=== PATIENT | male | born 1965 | race Two or more races ===

== ENCOUNTER 2024-09-19 11:33 | Inpatient (IN) | payer MEDICAID, OTHER ==
[~2024-09-19] VITALS: Ht 182.9 cm; Wt 90.0 kg
--- NOTE | 2024-09-19 13:01 | ED.PDOC ---
Musculoskeletal HPI Comments 59Y M with PMHx anxiety and lt hip surgery presents to ED via EMS for chief complaint lt hip pain s/p surgery 8 days ago. Pt had lt hip surgery performed 8 days ago at [facility] and was sent to a post-acute center. Pt states he is unable to disclose information on reason for the surgery as his lane attendant recommended against it. Pt was picked up at the post-acute center by EMS today as pt heard a "rip and pop" on his left hip last night. Pt denies seeing blood. Pt denies chest pain, SOB, fever, and all other symptoms. Per pt, current post- acute center does not have proper amenities for his care and do not have the ability to give him pain medication. Pt states he is unable to stand up alone and does not receive proper help in the current post-acute center. Chief Complaint: Lower Extremity Time Seen by MD: 12:28 Reviewed Notes: Nurses Notes, Epitaxial Reactor Technician Notes, Medications, Allergies Allergies: Coded Allergies: Sulfamethoxazole w/Trimethoprim (Verified Allergy, Severe, 09/19/24) Information Source: Patient, Emergency Med Personnel Mode of Arrival: EMS Brought in by: EMS Location: Left Extremity Location: Hip, Knee Timing: Hours Prehospital treatment: None Severity: Mild Able to Move Extremity: Yes Bear Weight: No Pain: Mild Mechanism: Unknown Circumstances: Unknown Onset of Symptoms: After Trauma Symptoms: Swelling, Pain DVT Risk Factors: NONE History of: Hip Operation Associated signs and symptoms: Knee pain, Hip pain Past Medical History PAST MEDICAL HISTORY: Anxiety Surgical History (Other): lt hip surgery Family History Family History: Unknown Social History Smoker: Non-Smoker Alcohol: Occasionally Drugs: Marijuana Lives In: Homeless Constitutional: denies: chills, diaphoresis, fatigue, fever, malaise, sweats, weakness, others EENTM: denies: blurred vision, double vision, ear bleeding, ear discharge, ear drainage, ear pain, ear ringing, eye pain, eye redness, hearing loss, mouth pain, mouth swelling, nasal discharge, nose bleeding, nose congestion, nose pain, photophobia, tearing, throat pain, throat swelling, voice changes, others Respiratory: denies: cough, hemoptysis, orthopnea, SOB at rest, shortness of breath, SOB with excertion, stridor, wheezing, others Cardiovascular: denies: chest pain, dizzy spells, diaphoresis, Dyspnea on exertion, edema, irregular heart beat, left arm pain, lightheadedness, palpitations, PND, syncope, others Gastrointestinal: denies: abdomen distended, abdominal pain, blood streaked bowels, constipated, diarrhea, dysphagia, difficulty swallowing, hematemesis, melena, nausea, poor appetite, poor fluid intake, rectal bleeding, rectal pain, vomiting, others Genitourinary: denies: burning, dysuria, flank pain, frequency, hematuria, incontinence, penile discharge, penile sore, pain, testicle pain, testicle swelling, urgency, others Neurological: denies: dizziness, fainting, headache, left sided numbness, left sided weakness, numbness, paresthesia, pre-existing deficit, right sided numbness, right sided weakness, seizure, speech problems, tingling, tremors, weakness, others Musculoskeletal: reports: joint pain, others (LLE pain, lt hip pain); denies: back pain, gout, joint swelling, muscle pain, muscle stiffness, neck pain Integumetry: denies: bruises, change in color, change in hair/nails, dryness, laceration, lesions, lumps, rash, wounds, others Allergic/Immunocompromised: denies: Difficulty Healing, Frequent Infections, Hives, Itching, others Hematologic/Lymphatic: denies: anemia, blood clots, easy bleeding, easy bruising, swollen glands, others Endocrine: denies: excessive hunger, excessive sweating, excessive thirst, excessive urination, flushing, intolerance to cold, intolerance to heat, unexplained weight gain, unexplained weight loss, others Psychiatric: denies: anxiety, bipolar disorder, depression, hopeless, panic disorder, schizophrenia, sleepless, suicidal, others All Other Systems: Reviewed and Negative Physical Exam General Appearance: Moderate Distress, Normal HEENT: Normal ENT Inspection, PERRL/EOMI, Pharynx Normal, TMs Normal Neck: Full Range of Motion, Non-Tender, Normal, Normal Inspection Respiratory: Chest Non-Tender, Lungs Clear, No Accessory Muscle Use, No Respiratory Distress, Normal Breath Sounds Cardiovascular: No Edema, No JVD, No Murmur, No Gallop, Normal Peripheral Pulses, Regular Rate/Rhythm Breast Exam: Deferred Gastrointestinal: No Organomegaly, Non Tender, No Pulsatile Mass, Normal Bowel Sounds, Soft Genitalia: Deferred Pelvic: Deferred Rectal: Deferred Extremities: Decreased range of motion, Inflammation, No calf tenderness, Normal capillary refill, No pedal edema, Swelling, Tender, Other (Patient had hip surgery week ago try to get up yesterday and today and felt like a tear and a crack in his left hip with severe pain there is no deformity) Musculoskeletal : Apperance: Normal Neurologic: Alert, methods engineer II-XII nml as Tested, No Motor Deficits, Normal Affect, Normal Mood, No Sensory Deficits Cerebellar Function: NOT DONE Reflexes: NOT DONE Skin: Dry, Normal Color, Warm Peripheral Pulses: 1+ carotid (R), 1+ carotid (L) Lymphatic: No Adenopathy Was a procedure done? Was a procedure done?: No Differential Diagnosis EXT Differential Diagnosis: Fracture, Sprain, Dislocation, DJD, Contusion, Strain, Neurovascular injury X-Ray, Labs, Meds, VS Vital Signs Date Time Temp Pulse Resp B/P (MAP) Pulse Ox O2 Delivery O2 Flow Rate FiO2 09/19/24 11:42 98.4 94 18 140/68 (92) 98 Lab Test 09/19/24 13:34 Range/Units White Blood Count 7.2 4.4-10.8 10^3/uL Red Blood Count 4.14 L 4.5-5.90 10^6/uL Hemoglobin 12.8 L 13.5-17.5 g/dL Hematocrit 37.9 L 41.0-53.0 % Mean Corpuscular Volume 91.5 80.0-100.0 fL Mean Corpuscular Hemoglobin 31.0 28.0-32.0 pg Mean Corpuscular Hemoglobin Concent 33.9 32.0-36.0 g/dL Red Cell Distribution Width 13.0 11.8-14.3 % Platelet Count 383 140-450 10^3/uL Mean Platelet Volume 7.1 6.9-10.8 fL Neutrophils (%) (Auto) 75.7 37.0-80.0 % Lymphocytes (%) (Auto) 15.7 10.0-50.0 % Monocytes (%) (Auto) 6.5 0.0-12.0 % Eosinophils (%) (Auto) 1.4 0.0-7.0 % Basophils (%) (Auto) 0.7 0.0-2.0 % Neutrophils # (Auto) 5.5 1.6-8.6 10 ^3/uL Lymphocytes # (Auto) 1.1 0.4-5.4 10 ^3/uL Monocytes # (Auto) 0.5 0-1.3 10 ^3/uL Eosinophils # (Auto) 0.1 0-0.8 10 ^3/uL Basophils # (Auto) 0.1 0-0.2 10 ^3/uL Nucleated Red Blood Cells 0.0 % Sodium Level 137 136-145 mmol/L Potassium Level 4.3 3.5-5.1 mmol/L Chloride Level 103 98-107 mmol/L Carbon Dioxide Level 28 20-31 mmol/L Anion Gap 6 5-15 Blood Urea Nitrogen 18 9-23 mg/dL Creatinine 0.84 0.700-1.30 mg/dL Glomerular Filtration Rate Calc 100 >90 mL/min BUN/Creatinine Ratio 21.4 H 10.0-20.0 Serum Glucose 102 74-106 mg/dL Calcium Level 9.6 8.7-10.4 mg/dL Magnesium Level 2.1 1.6-2.6 mg/dL [place] [id number] Ph: [phone] DIAGNOSTIC IMAGING Diagnostic Imaging Report : [id number] Signed PATIENT: AG WILSON ACCT: [id number] UNIT: [id number] : 1965 LOC: ER ROOM / BED: / AGE / SEX: 59 / M ADM STATUS: REG ER SERVICE 1250 ORDERING PHYSICIAN: BLAKE RADFORD MD [facility] OUT CONTRAST REASON: Left hip surgery re-injury ORDER NUMBER(s): [id number], ACCESSION NUMBER(s): [id number] INDICATION: Left hip surgery re-injury COMPARISON: None TECHNIQUE: CT of the left hip was performed without contrast. Volume transverse images were obtained and reconstructed in multiple planes using bone and soft tissue algorithms. Radiation Dose Information: CT Dose: CTDI volume is 22.45 mGy. Dose-length product is 736.46 mGy*cm FINDINGS: Bones: Intramedullary ghada and screw fixation of the left femur. The hardware appears intact and in expected position. There is a minimally displaced intertrochanteric fracture with minimal comminution. There is no appreciable osseous healing. Soft tissues: No significant joint effusion. There is superficial stranding and scarring overlying the left hip consistent with prior surgery. No focal fluid collections are seen. There is a small fat containing left inguinal hernia. IMPRESSION: Left intertrochanteric femur fracture status post intramedullary ghada and screw fixation. The hardware appears intact and there is good alignment of the fracture fragments. Preoperative imaging is not available for comparison. All CT scans at this medical facility are performed using dose modulation techniques as appropriate to a performed exam including the following: Automated exposure control was utilized; adjustment of the MA and/or KV according to patient size; and use of iterative reconstruction technique. ATED BY: CHENG GRAY DO DICTATED DATE/TIME: 09/19/24 1328 SIGNED BY: CHENG GRAY DO SIGNED DATE/TIME: 09/19/24 1328 CC: X-Ray, Labs, Meds, VS Comment Course in the emergency department eventful patient came in by ambulance because of severe left knee pain patient had surgery about a week ago at [facility] this morning he tried to get up and felt snap and a crack and severe pain to his left hip mostly distal area CBC normal BNP negative Magnesium 2.1 CT of the left hip does not show any re-injury Patient needs a medical social worker for further care he does not want to go back to is post acute facility Time of 1ST Reevaluation: 12:58 Reevaluation 1ST: Unchanged Time of 2ND Reevaluation: 14:42 Reevaluation 2ND: Improved Patient Education/Counseling: Diagnosis, Treatment Family Education/Counseling: No Family Present Departure 1 Departure Time of Disposition: 14:42 Impression: Primary Impression: Aftercare following left hip joint replacement surgery Additional Impression: Sprain of left hip Disposition: 30 STILL A PATIENT Condition: Fair Critical Care Note Critical Care Time?: No Stability Stability form required: No Heart Score Heart Score: Heart Score Response (Comments) Value History N/A 0 EKG N/A 0 Age 45-64 1 Risk Factors N/A 0 Troponin N/A 0 Total 1 I personally scribed for BLAKE RADFORD MD ([email or web address]) on 09/19/24 at 13:01. Electronically submitted by Kathleen Coker ([facility]). I personally scribed for BLAKE RADFORD MD ([email or web address]) on 09/19/24 at 13:09. Electronically submitted by Kathleen Coker ([facility]). I personally scribed for BLAKE RADFORD MD ([email or web address]) on 09/19/24 at 13:41. Electronically submitted by Kathleen Coker ([facility]). BLAKE RADFORD MD Sep 19, 2024 13:01
[2024-09-19] MEDS: SODIUM CHLORIDE 0.9% 1,000 ML IV ONE (13:02)
--- NOTE | 2024-09-19 13:30 | DVH ---
INDICATION: Left hip surgery re-injury COMPARISON: None TECHNIQUE: CT of the left hip was performed without contrast. Volume transverse images were obtained and reconstructed in multiple planes using bone and soft tissue algorithms. Radiation Dose Information: CT Dose: CTDI volume is 22.45 mGy. Dose-length product is 736.46 mGy*cm FINDINGS: Bones: Intramedullary ghada and screw fixation of the left femur. The hardware appears intact and in e xpected position. There is a minimally displaced intertrochanteric fracture with minimal comminution. There is no appreciable osseous healing. Soft tissues: No significant joint effusion. There is superficial stranding and scarring overlying th e left hip consistent with prior surgery. No focal fluid collections are seen. There is a small fat containing left inguinal hernia. IMPRESSION: Left intertrochanteric femur fracture status post intramedullary ghada and screw fixation. The hardware appears intact and there is good alignment of the fracture fragments. Preoperative imaging is not av ailable for comparison. All CT scans at this medical facility are performed using dose modulation techniques as appropriate t o a performed exam including the following: Automated exposure control was utilized; adjustment of th e MA and/or KV according to patient size; and use of iterative reconstruction technique.
[2024-09-19 13:51] LABS: Basophils # (auto) 0.1 10 ^3/uL (0-0.2); Basophils % (auto) 0.7 % (0.0-2.0); Eosinophils # (auto) 0.1 10 ^3/uL (0-0.8); Eosinophils % (auto) 1.4 % (0.0-7.0); Hematocrit 37.9 % (41.0-53.0); Hemoglobin 12.8 g/dL (13.5-17.5); Lymphocytes # (auto) 1.1 10 ^3/uL (0.4-5.4); Lymphocytes % (auto) 15.7 % (10.0-50.0); Mean Corpuscular Hgb Conc. 33.9 g/dL (32.0-36.0); Mean Corpuscular Volume 91.5 fL (80.0-100.0); Monocytes # (auto) 0.5 10 ^3/uL (0-1.3); Monocytes % (auto) 6.5 % (0.0-12.0); Neutrophils # (auto) 5.5 10 ^3/uL (1.6-8.6); Neutrophils % (auto) 75.7 % (37.0-80.0); Platelet Count (auto) 383 10^3/uL (140-450); Red Blood Cells 4.14 10^6/uL (4.5-5.90); White Blood Cell 7.2 10^3/uL (4.4-10.8)
[2024-09-19 14:12] LABS: Chloride 103 mmol/L (98-107); Potassium 4.3 mmol/L (3.5-5.1); Sodium 137 mmol/L (136-145)
[2024-09-19 14:13] LABS: Anion Gap 6 (5-15); Calcium 9.6 mg/dL (8.7-10.4); Carbon Dioxide 28 mmol/L (20-31)
[2024-09-19 14:18] LABS: BUN/Creatinine Ratio 21.4 (10.0-20.0); Blood Urea Nitrogen 18 mg/dL (9-23); Glucose 102 mg/dL (74-106)
[2024-09-19 14:19] LABS: Magnesium 2.1 mg/dL (1.6-2.6)
[2024-09-19 20:00] VITALS: RESP 18
[2024-09-19] MEDS: HYDROcodone-ACET 10/325MG TAB PO ONE (20:11)
--- NOTE | 2024-09-20 07:41 | ED.PDOC ---
Departure 1 Departure Time of Disposition: 07:40 (Patient was signed out to me pending reassessment Patient had recent hip repair. Patient is unable to ambulate and in pain. We will admit patient for pain control and placement.) Impression: Primary Impression: Aftercare following left hip joint replacement surgery Additional Impression: Sprain of left hip Qualified Codes: S73.102A - Unspecified sprain of left hip, initial encounter Disposition: ADMITTED INPATIENT Admit to: Med Surg Condition: Fair REGINALD RM MD Sep 20, 2024 07:41
[2024-09-20] MEDS: HYDROcodone-ACET 10/325MG TAB PO ONE (07:55)
--- NOTE | 2024-09-20 07:56 | DVHHP2 ---
Admitting Diagnosis: Left leg pain History of Present Illness 59Y M with PMHx anxiety and lt hip surgery presents to ED via EMS for chief complaint lt hip pain s/p surgery 8 days ago. Pt had lt hip surgery performed 8 days ago at [facility] and was sent to a post-acute center. Pt states he is unable to disclose information on reason for the surgery as his engineering technical writer recommended against it. Pt was picked up at the post-acute center by EMS today as pt heard a "rip and pop" on his left hip last night. Pt denies seeing blood. Pt denies chest pain, SOB, fever, and all other symptoms. Per pt, current post- acute center does not have proper amenities for his care and do not have the ability to give him pain medication. Pt states he is unable to stand up alone and does not receive proper help in the current post-acute center. Past Medical History PAST MEDICAL HISTORY: Anxiety Surgical History (Other): lt hip surgery Family History Family History: Unknown Social History Smoker: Non-Smoker Alcohol: Occasionally Drugs: Marijuana Lives In: Homeless Allergies: Coded Allergies: Sulfamethoxazole w/Trimethoprim (Verified Allergy, Severe, 09/19/24) Vital Signs Vital Signs Date Time Temp Pulse Resp B/P (MAP) Pulse Ox O2 Delivery O2 Flow Rate FiO2 09/19/24 20:16 98.0 94 18 128/88 (101) 97 98.0 09/19/24 20:00 Room Air* 0 21 Physical Exam Generally-69 years old male, well nourished well developed. No apparent distress HEENT-atraumatic normocephalic Heart-regular rate and rhythm Lungs clear to auscultate Abdomen soft nontender nondistended Musculoskeletal-no edema cyanosis. Left hip pain Neuro-AO x3, no focal deficits Results Labs Test 09/19/24 13:34 Range/Units White Blood Count 7.2 4.4-10.8 10^3/uL Red Blood Count 4.14 L 4.5-5.90 10^6/uL Hemoglobin 12.8 L 13.5-17.5 g/dL Hematocrit 37.9 L 41.0-53.0 % Mean Corpuscular Volume 91.5 80.0-100.0 fL Mean Corpuscular Hemoglobin 31.0 28.0-32.0 pg Mean Corpuscular Hemoglobin Concent 33.9 32.0-36.0 g/dL Red Cell Distribution Width 13.0 11.8-14.3 % Platelet Count 383 140-450 10^3/uL Mean Platelet Volume 7.1 6.9-10.8 fL Neutrophils (%) (Auto) 75.7 37.0-80.0 % Lymphocytes (%) (Auto) 15.7 10.0-50.0 % Monocytes (%) (Auto) 6.5 0.0-12.0 % Eosinophils (%) (Auto) 1.4 0.0-7.0 % Basophils (%) (Auto) 0.7 0.0-2.0 % Neutrophils # (Auto) 5.5 1.6-8.6 10 ^3/uL Lymphocytes # (Auto) 1.1 0.4-5.4 10 ^3/uL Monocytes # (Auto) 0.5 0-1.3 10 ^3/uL Eosinophils # (Auto) 0.1 0-0.8 10 ^3/uL Basophils # (Auto) 0.1 0-0.2 10 ^3/uL Nucleated Red Blood Cells 0.0 % Sodium Level 137 136-145 mmol/L Potassium Level 4.3 3.5-5.1 mmol/L Chloride Level 103 98-107 mmol/L Carbon Dioxide Level 28 20-31 mmol/L Anion Gap 6 5-15 Blood Urea Nitrogen 18 9-23 mg/dL Creatinine 0.84 0.700-1.30 mg/dL Glomerular Filtration Rate Calc 100 >90 mL/min BUN/Creatinine Ratio 21.4 H 10.0-20.0 Serum Glucose 102 74-106 mg/dL Calcium Level 9.6 8.7-10.4 mg/dL Magnesium Level 2.1 1.6-2.6 mg/dL Primary Diagnosis Difficulty walking Left hip surgery Plan Vital signs stable. No signs of infection. Patient unable to ambulate patient is homeless requests opiates. recommend to avoid over narcosis on patient with opiates suspect drug seeking upon evaluation check urine drug study CT scan shows no signs of infeciton or abnormality pain control with tylenol and NSAIDs , tramadol p.r.n. Social work consult PT evaluation Full code Regular diet lovenox DVT prophylaxis Plan discussed with: Patient Problems List: (1) Aftercare following left hip joint replacement surgery Status: Acute (2) Sprain of left hip Status: Acute Date of Service: Sep 20, 2024 Billing Provider: CAREY MARMOLEJO MD Common Visit Codes: [id number] INP/OBS CARE (MOD) Date of Service: Sep 20, 2024 Billing Provider: CAREY MARMOLEJO MD Common Visit Codes: [id number] INP/OBS CARE (MOD) CAREY MARMOLEJO MD Sep 20, 2024 07:56
[2024-09-20] MEDS ORDERED: ACETAMINOPHEN 325 MG TAB PO PRN (08:15)
[2024-09-20] MEDS ORDERED: DOCUSATE SOD 100 MG CAP PO PRN (08:15)
[2024-09-20] MEDS ORDERED: CELECOXIB 100 MG CAP PO PRN (08:15)
[2024-09-20] MEDS: ENOXAPARIN SOD 40 MG/0.4 ML SYRINGE SC SCH (10:29)
[2024-09-20] MEDS: SODIUM CHLOR 0.9% PF (SALINE LOCK) 10ML VIAL/SYR IV SCH (14:18)
[2024-09-20 22:35] VITALS: BP 116/74; PULSE 71; RESP 17; TEMP 97.8; O2SAT 98
[2024-09-21 01:00] VITALS: BP 104/55; PULSE 76; RESP 19; TEMP 97.8; O2SAT 96
[2024-09-21 09:36] LABS: Urine Bacteria None Seen /hpf (None Seen)
[2024-09-21 10:08] LABS: Urine Blood Negative /uL (Negative); Urine Clarity Clear (Clear); Urine Color Colorless (Yellow); Urine Protein, UAD Negative (Negative); Urine Specific Gravity 1.006 (1.001-1.035); Urine Squamous Epithelial Cell FEW /hpf (<5); Urine Urobilinogen Normal (Negative); Urine WBC <1 /hpf (0 - 3); Urine pH 6.5 (5.0-9.0)
[2024-09-21 10:12] LABS: Amphetamine Screen, Urine Neg (NEGATIVE); Barbiturate Scree,Urine Neg (NEGATIVE); Benzodiazephine Screen, Urine Neg (NEGATIVE); Cannabinoid Screen, Urine Neg (NEGATIVE); Cocaine Screen, Urine Neg (NEGATIVE); Opiate Scree,Urine Neg (NEGATIVE); Phencyclidine Screen, Urine Neg (NEGATIVE)
[2024-09-21 12:49] VITALS: BP 121/79; PULSE 82; RESP 16; TEMP 97.6; O2SAT 98
--- NOTE | 2024-09-21 14:54 | DVHPN2 ---
Subjective more concerned about dc plan/denies any pain as such // Changes from previous H/P or p: No Changes Objective Vitals Vital Signs Date Time Temp Pulse Resp B/P (MAP) Pulse Ox O2 Delivery O2 Flow Rate FiO2 09/21/24 12:49 97.6 82 16 121/79 (93) 98 97.6 09/20/24 22:51 Room Air* 0 21 Intake/Output Intake and Output 09/21/24 07:00 Intake Total 1040 ml Balance 1040 ml Intake Oral 1040 ml General Appearance: Alert, Oriented X3, Cooperative, No acute distress Lungs: Clear to auscultation, Normal air movement Cardiovascular: Regular rate, Normal S1, Normal S2 Abdomen: Normal bowel sounds, Soft, No tenderness, No hepatospenomegaly Musculoskeletal: Normal sensory function, Normal motor function Neuro: Normal gait, Normal speech, Strength at 5/5 X4 ext, Normal tone, S ensation intact, Cranial nerves 3-12 NL Medications Current Medications Medications Dose Ordered Sig/Amber Route Start Time Stop Time Status Last Admin Dose Admin Sodium Chloride 10 ml Q8HR IV 09/20/24 14:00 09/20/24 14:18 10 ML Docusate Sodium 100 mg BIDPRN PRN PO 09/20/24 08:15 Acetaminophen 650 mg Q6HP PRN PO 09/20/24 08:15 Ondansetron HCl 4 mg Q4HP PRN IV 09/20/24 08:15 Enoxaparin Sodium 40 mg DAILY SC 09/20/24 10:00 Tramadol HCl 50 mg Q6H PRN PO 09/20/24 08:15 Laboratory Results Laboratory Tests 09/19/24 13:34 Urinalysis Test 09/21/24 08:35 Urine Color Colorless (Yellow) Urine Clarity Clear (Clear) Urine pH 6.5 (5.0-9.0) Urine Specific [place] 1.006 (1.001-1.035) Urine Protein Negative (Negative) Urine Ketones Negative (Negative) Urine Blood Negative /uL (Negative) Urine Nitrite Negative (Negative) Urine Bilirubin Negative (Negative) Urine Urobilinogen Normal mg/dL (Negative) Urine Leukocyte Esterase Negative /uL (Negative) Urine RBC 2 /hpf (0 - 3) Urine WBC <1 /hpf (0 - 3) Urine Squamous Epithelial Cells Few /hpf (<5) Urine Bacteria None seen /hpf (None Seen) Urine Glucose Normal mg/dL (Normal) Labs and/or images reviewed: Labs reviewed by me, Image(s) reviewed by me Assessment/Plan Assessment/Plan s/p lt intertrochanteric fracture- s/p orif at [facility] advised strictly no wt bearing lt leg untill cleared by ortho advised compliance with lovenox incision is clean Plan discussed with: Patient, Other My Orders Orders - MATIAS PERES MD Procedure Category Date Status Time * Lamp Assembler CONS 09/21/24 Transmitted Consult *Consult Dr. Cordero CONS 09/21/24 Transmitted Candace 12:51 Date of Service: Sep 21, 2024 Billing Provider: MATIAS PERES MD Common Visit Codes: [id number] INP/OBS CARE(MOD) MATIAS PERES MD Sep 21, 2024 14:54
[2024-09-21 17:15] VITALS: BP 122/81; PULSE 78; RESP 20; TEMP 98.3; O2SAT 92
[2024-09-21 21:00] VITALS: BP 120/60; PULSE 74; RESP 16; TEMP 98; O2SAT 96
[2024-09-21] MEDS: traMADol HCL 50 MG TAB PO PRN (22:15)
[2024-09-22 01:00] VITALS: BP 106/72; PULSE 72; RESP 14; TEMP 97.8; O2SAT 94
[2024-09-22] MEDS: MELATONIN 5 MG TAB PO SCH (01:07)
[2024-09-22 09:00] VITALS: BP 142/81; PULSE 75; RESP 20; TEMP 97.6; O2SAT 97
[2024-09-22 13:00] VITALS: BP 144/87; PULSE 70; RESP 20; TEMP 98; O2SAT 95
[2024-09-22 16:49] VITALS: BP 130/80; PULSE 73; RESP 18; TEMP 98.8; O2SAT 97
[2024-09-22] MEDS: ONDANSETRON HCL 4 MG/2 ML VIAL IV PRN (17:19)
--- NOTE | 2024-09-22 17:40 | DVHPN2 ---
Subjective more concerned about dc plan/denies any pain as such // Changes from previous H/P or p: No Changes Objective Vitals Vital Signs Date Time Temp Pulse Resp B/P (MAP) Pulse Ox O2 Delivery O2 Flow Rate FiO2 09/22/24 16:49 98.8 73 18 130/80 (97) 97 98.8 09/22/24 08:00 Room Air* 0 21 Intake/Output Intake and Output 09/22/24 07:00 Intake Total 1750 ml Output Total 1880 ml Balance -130 ml Intake Oral 1750 ml Output Urine Total 1880 ml # Voids 6 # Bowel Movements 4 General Appearance: Alert, Oriented X3, Cooperative, No acute distress Lungs: Clear to auscultation, Normal air movement Cardiovascular: Regular rate, Normal S1, Normal S2 Abdomen: Normal bowel sounds, Soft, No tenderness, No hepatospenomegaly Musculoskeletal: Normal sensory function, Normal motor function Neuro: Normal gait, Normal speech, Strength at 5/5 X4 ext, Normal tone, S ensation intact, Cranial nerves 3-12 NL Medications Current Medications Medications Dose Ordered Sig/Amber Route Start Time Stop Time Status Last Admin Dose Admin Sodium Chloride 10 ml Q8HR IV 09/20/24 14:00 09/20/24 14:18 10 ML Docusate Sodium 100 mg BIDPRN PRN PO 09/20/24 08:15 Acetaminophen 650 mg Q6HP PRN PO 09/20/24 08:15 Ondansetron HCl 4 mg Q4HP PRN IV 09/20/24 08:15 09/22/24 17:19 4 MG Enoxaparin Sodium 40 mg DAILY SC 09/20/24 10:00 Tramadol HCl 50 mg Q6H PRN PO 09/20/24 08:15 09/21/24 22:15 50 MG Melatonin 5 mg HS PO 09/22/24 01:30 09/22/24 01:07 5 MG Laboratory Results Laboratory Tests 09/19/24 13:34 Urinalysis Test 09/21/24 08:35 Urine Color Colorless (Yellow) Urine Clarity Clear (Clear) Urine pH 6.5 (5.0-9.0) Urine Specific [place] 1.006 (1.001-1.035) Urine Protein Negative (Negative) Urine Ketones Negative (Negative) Urine Blood Negative /uL (Negative) Urine Nitrite Negative (Negative) Urine Bilirubin Negative (Negative) Urine Urobilinogen Normal mg/dL (Negative) Urine Leukocyte Esterase Negative /uL (Negative) Urine RBC 2 /hpf (0 - 3) Urine WBC <1 /hpf (0 - 3) Urine Squamous Epithelial Cells Few /hpf (<5) Urine Bacteria None seen /hpf (None Seen) Urine Glucose Normal mg/dL (Normal) Assessment/Plan Assessment/Plan s/p lt intertrochanteric fracture- s/p orif at [facility] advised strictly no wt bearing lt leg untill cleared by ortho advised compliance with lovenox incision is clean awaiting placement- major case detective working Plan discussed with: Other My Orders Orders - MATIAS PERES MD Procedure Category Date Status Time * Comsec Manager CONS 09/22/24 Transmitted Consult Date of Service: Sep 22, 2024 Billing Provider: MATIAS PERES MD Common Visit Codes: [id number] INP/OBS CARE(MOD) MATIAS PERES MD Sep 22, 2024 17:40
[2024-09-22 21:00] VITALS: BP 126/84; PULSE 79; RESP 17; TEMP 98.3; O2SAT 96
[2024-09-23] VITALS (7 sets, daily range): BP systolic 112–131; BP diastolic 72–89; PULSE 79–89; RESP 18–20; TEMP 97.5–98.4; O2SAT 96–99
[2024-09-24] VITALS (8 sets, daily range): BP systolic 113–126; BP diastolic 65–80; PULSE 71–81; RESP 18–19; TEMP 97.5–98.2; O2SAT 95–97
--- NOTE | 2024-09-24 07:17 | DVHINCON2 ---
Date of service: Sep 23, 2024 Reason for Consultation left hip pain History of Present Illness 59 yo M with hx of Left hip ORIF at [facility] last week; Patient then went to SNF and came back to hosp due to hearing a pop. Patient states his pain is currently controlled; no cp/sob/abd pain. Past Medical History PAST MEDICAL HISTORY: Anxiety Social History came from rehab; homeless Allergies: Coded Allergies: Sulfamethoxazole w/Trimethoprim (Verified Allergy, Severe, 09/19/24) Review of Systems neg except per HPI Vital Signs Vital Signs Date Time Temp Pulse Resp B/P (MAP) Pulse Ox O2 Delivery O2 Flow Rate FiO2 09/24/24 05:00 97.6 71 19 122/72 (89) 97 97.6 09/23/24 20:00 Room Air* 0 21 Physical Exam NAD LLE: inc cdi +TA/gS/EHL/FHL foot wwp Labs/Diagnostic Data Labs Test 09/21/24 08:35 09/19/24 13:34 Range/Units Urine Color Colorless Yellow Urine Clarity Clear Clear Urine pH 6.5 5.0-9.0 Urine Specific [place] 1.006 1.001-1.035 Urine Protein Negative Negative Urine Ketones Negative Negative Urine Blood Negative Negative /uL Urine Nitrite Negative Negative Urine Bilirubin Negative Negative Urine Urobilinogen Normal Negative mg/dL Urine Leukocyte Esterase Negative Negative /uL Urine RBC 2 0 - 3 /hpf Urine WBC <1 0 - 3 /hpf Urine Squamous Epithelial Cells Few <5 /hpf Urine Bacteria None seen None Seen /hpf Urine Glucose Normal Normal mg/dL Urine Opiates Screen Neg NEGATIVE Urine Fentanyl Screen Neg NEGATIVE Urine Barbiturates Screen Neg NEGATIVE Urine Phencyclidine Screen Neg NEGATIVE Urine Amphetamines Screen Neg NEGATIVE Urine Benzodiazepines Screen Neg NEGATIVE Urine Cocaine Screen Neg NEGATIVE Urine Cannabinoids Screen Neg NEGATIVE White Blood Count 7.2 4.4-10.8 10^3/uL Red Blood Count 4.14 L 4.5-5.90 10^6/uL Hemoglobin 12.8 L 13.5-17.5 g/dL Hematocrit 37.9 L 41.0-53.0 % Mean Corpuscular Volume 91.5 80.0-100.0 fL Mean Corpuscular Hemoglobin 31.0 28.0-32.0 pg Mean Corpuscular Hemoglobin Concent 33.9 32.0-36.0 g/dL Red Cell Distribution Width 13.0 11.8-14.3 % Platelet Count 383 140-450 10^3/uL Mean Platelet Volume 7.1 6.9-10.8 fL Neutrophils (%) (Auto) 75.7 37.0-80.0 % Lymphocytes (%) (Auto) 15.7 10.0-50.0 % Monocytes (%) (Auto) 6.5 0.0-12.0 % Eosinophils (%) (Auto) 1.4 0.0-7.0 % Basophils (%) (Auto) 0.7 0.0-2.0 % Neutrophils # (Auto) 5.5 1.6-8.6 10 ^3/uL Lymphocytes # (Auto) 1.1 0.4-5.4 10 ^3/uL Monocytes # (Auto) 0.5 0-1.3 10 ^3/uL Eosinophils # (Auto) 0.1 0-0.8 10 ^3/uL Basophils # (Auto) 0.1 0-0.2 10 ^3/uL Nucleated Red Blood Cells 0.0 % Sodium Level 137 136-145 mmol/L Potassium Level 4.3 3.5-5.1 mmol/L Chloride Level 103 98-107 mmol/L Carbon Dioxide Level 28 20-31 mmol/L Anion Gap 6 5-15 Blood Urea Nitrogen 18 9-23 mg/dL Creatinine 0.84 0.700-1.30 mg/dL Glomerular Filtration Rate Calc 100 >90 mL/min BUN/Creatinine Ratio 21.4 H 10.0-20.0 Serum Glucose 102 74-106 mg/dL Calcium Level 9.6 8.7-10.4 mg/dL Magnesium Level 2.1 1.6-2.6 mg/dL Plan/Recommendation 59 yo M with hx of ORIF left hip intertroch at [facility] 1. WBAT with walker 2. PT 3. pain control 4. okay to shower 5. dressing changes as needed 6. follow up with original surgeon from [facility] in 3-4 weeks with left hip xray Plan discussed with: Patient DONNY RIDER MD Sep 24, 2024 07:17
--- NOTE | 2024-09-24 14:04 | DVHPN2 ---
Subjective Trying to work out hard with physical therapy; wondering when he will get SNF placement Reviewed: Care Plan, H&P, Labs, Medications, Previous Orders, Radiology Changes from previous H/P or p: No Changes Objective Vitals Vital Signs Date Time Temp Pulse Resp B/P (MAP) Pulse Ox O2 Delivery O2 Flow Rate FiO2 09/24/24 12:48 97.5 74 18 113/77 (89) 97 97.5 09/24/24 08:00 Room Air* 0 21 Intake/Output Intake and Output 09/24/24 07:00 Intake Total 3680 ml Balance 3680 ml Intake Oral 3680 ml # Voids 11 # Bowel Movements 1 General Appearance: Alert, Oriented X3, Cooperative, No acute distress Lungs: Clear to auscultation, Normal air movement Cardiovascular: Regular rate, Normal S1, Normal S2 Abdomen: Normal bowel sounds, Soft, No tenderness Extremities: Other (Left hip dressing site with no bruise; with mild tenderness) Neuro: Normal speech, Cranial nerves 3-12 NL Psych/Mental Status: Mental status NL, Mood NL Medications Current Medications Medications Dose Ordered Sig/Amber Route Start Time Stop Time Status Last Admin Dose Admin Sodium Chloride 10 ml Q8HR IV 09/20/24 14:00 09/20/24 14:18 10 ML Docusate Sodium 100 mg BIDPRN PRN PO 09/20/24 08:15 Acetaminophen 650 mg Q6HP PRN PO 09/20/24 08:15 Ondansetron HCl 4 mg Q4HP PRN IV 09/20/24 08:15 Enoxaparin Sodium 40 mg DAILY SC 09/20/24 10:00 Tramadol HCl 50 mg Q6H PRN PO 09/20/24 08:15 09/24/24 08:30 50 MG Melatonin 5 mg HS PO 09/22/24 01:30 09/23/24 21:01 5 MG Laboratory Results Laboratory Tests 09/19/24 13:34 Urinalysis Test 09/21/24 08:35 Urine Color Colorless (Yellow) Urine Clarity Clear (Clear) Urine pH 6.5 (5.0-9.0) Urine Specific [place] 1.006 (1.001-1.035) Urine Protein Negative (Negative) Urine Ketones Negative (Negative) Urine Blood Negative /uL (Negative) Urine Nitrite Negative (Negative) Urine Bilirubin Negative (Negative) Urine Urobilinogen Normal mg/dL (Negative) Urine Leukocyte Esterase Negative /uL (Negative) Urine RBC 2 /hpf (0 - 3) Urine WBC <1 /hpf (0 - 3) Urine Squamous Epithelial Cells Few /hpf (<5) Urine Bacteria None seen /hpf (None Seen) Urine Glucose Normal mg/dL (Normal) Labs and/or images reviewed: Labs reviewed by me, Image(s) reviewed by me Assessment/Plan Assessment/Plan Covering: #Left intertrochanteric femur fracture status post intramedullary ghada and screw fixation at [facility] last week; continue physical therapy as inpatient; reviewed head CT; reviewed orthopedic surgery note; continue pain management as tolerated; social contact worker is working to find a SNF for rehab as the patient is homeless; continue monitoring #Normocytic anemia; most likely related to blood loss; ordered repeat labs; continue monitoring #Overweight; counseled the patient on the importance of adopting healthy lifestyle with diet and exercise in order to lose weight; continue monitoring #Marijuana use disorder; reviewed urine drug test; counseled the patient on marijuana use cessation for 18 minutes; continue monitoring #Homelessness; Marketing Communications Assistant onboard; continue monitoring #On DVT prophylaxis with enoxaparin; continue monitoring Goals of care discussed for 20 minutes; full code. Late Entry. This medical document was created using an electronic medical record system with computerized dictation system. Although this document has been carefully reviewed, there might still be some phonetic and typographical errors. These areas are purely typographical due to imperfections of the software programs, and do not reflect any compromise in the patient's medical care. Plan discussed with: Patient, Other (Nurse) Date of Service: Sep 24, 2024 Billing Provider: WALKER PYLE MD Common Visit Codes: [id number] INP/OBS CARE(HIGH) Secondary Visit Codes: [id number] CHNG SMOKING >10MIN (18 minutes), 79634- ADVANCED CARE PLAN 30 MINUTES (20 minutes) WALKER PYLE MD Sep 24, 2024 14:04
[2024-09-25 08:00] VITALS: PULSE 67; RESP 18; O2SAT 97
[2024-09-25 09:00] VITALS: BP 109/77; PULSE 67; RESP 18; TEMP 97.6; O2SAT 97
--- NOTE | 2024-09-25 11:47 | DVHPN2 ---
Subjective No new complaint; still wondering when he will get SNF placement Reviewed: Care Plan, H&P, Labs, Medications, Previous Orders, Radiology Changes from previous H/P or p: No Changes Objective Vitals Vital Signs Date Time Temp Pulse Resp B/P (MAP) Pulse Ox O2 Delivery O2 Flow Rate FiO2 09/25/24 09:00 97.6 67 18 109/77 (88) 97 97.6 09/24/24 20:00 Room Air* 0 21 Intake/Output Intake and Output 09/25/24 07:00 Intake Total 3916 ml Balance 3916 ml Intake Oral 3916 ml # Voids 10 # Bowel Movements 2 General Appearance: Alert, Oriented X3, Cooperative, No acute distress Lungs: Clear to auscultation, Normal air movement Cardiovascular: Regular rate, Normal S1, Normal S2 Abdomen: Normal bowel sounds, Soft, No tenderness Extremities: Other (Left hip dressing site with no bruise; with mild tenderness) Neuro: Normal speech, Cranial nerves 3-12 NL Psych/Mental Status: Mental status NL, Mood NL Medications Current Medications Medications Dose Ordered Sig/Amber Route Start Time Stop Time Status Last Admin Dose Admin Sodium Chloride 10 ml Q8HR IV 09/20/24 14:00 09/20/24 14:18 10 ML Docusate Sodium 100 mg BIDPRN PRN PO 09/20/24 08:15 Acetaminophen 650 mg Q6HP PRN PO 09/20/24 08:15 Ondansetron HCl 4 mg Q4HP PRN IV 09/20/24 08:15 Enoxaparin Sodium 40 mg DAILY SC 09/20/24 10:00 Tramadol HCl 50 mg Q6H PRN PO 09/20/24 08:15 09/24/24 22:11 50 MG Melatonin 5 mg HS PO 09/22/24 01:30 09/24/24 22:11 5 MG Laboratory Results Laboratory Tests 09/19/24 13:34 Urinalysis Test 09/21/24 08:35 Urine Color Colorless (Yellow) Urine Clarity Clear (Clear) Urine pH 6.5 (5.0-9.0) Urine Specific [place] 1.006 (1.001-1.035) Urine Protein Negative (Negative) Urine Ketones Negative (Negative) Urine Blood Negative /uL (Negative) Urine Nitrite Negative (Negative) Urine Bilirubin Negative (Negative) Urine Urobilinogen Normal mg/dL (Negative) Urine Leukocyte Esterase Negative /uL (Negative) Urine RBC 2 /hpf (0 - 3) Urine WBC <1 /hpf (0 - 3) Urine Squamous Epithelial Cells Few /hpf (<5) Urine Bacteria None seen /hpf (None Seen) Urine Glucose Normal mg/dL (Normal) Labs and/or images reviewed: Labs reviewed by me, Image(s) reviewed by me Assessment/Plan Assessment/Plan Covering: #Left intertrochanteric femur fracture status post intramedullary ghada and screw fixation at [facility] last week; continue physical therapy as inpatient; reviewed hip CT; reviewed orthopedic surgery note; continue pain management as tolerated; older adult social work specialist is working to find a SNF for rehab as the patient is homeless; continue monitoring #Normocytic anemia; most likely related to blood loss; repeat labs showed stable hemoglobin; continue monitoring #Elevated alkaline phosphatase; due to recent fracture; rest of LFTs within normal limits; continue monitoring #Overweight; counseled the patient on the importance of adopting healthy lifestyle with diet and exercise in order to lose weight; continue monitoring #Marijuana use disorder; reviewed urine drug test; counseled the patient on marijuana use cessation; continue monitoring #Homelessness; Regulatory Affairs Consultant onboard; continue monitoring #On DVT prophylaxis with enoxaparin; continue monitoring Late Entry. This medical document was created using an electronic medical record system with computerized dictation system. Although this document has been carefully reviewed, there might still be some phonetic and typographical errors. These areas are purely typographical due to imperfections of the software programs, and do not reflect any compromise in the patient's medical care. Plan discussed with: Patient, Other (Nurse) My Orders Orders - WALKER PYLE MD Procedure Category Date Status Time Complete Blood Count LAB 09/25/24 Logged 07:57 Comprehensive LAB 09/25/24 Logged Metabolic Panel 07:57 Date of Service: Sep 25, 2024 Billing Provider: WALKER PYLE MD Common Visit Codes: [id number] INP/OBS CARE(MOD) WALKER PYLE MD Sep 25, 2024 11:47
[2024-09-25 12:39] VITALS: BP 116/76; PULSE 80; RESP 18; TEMP 98.5; O2SAT 96
[2024-09-25 12:54] LABS: Basophils # (auto) 0 10 ^3/uL (0-0.2); Basophils % (auto) 0.9 % (0.0-2.0); Eosinophils # (auto) 0.1 10 ^3/uL (0-0.8); Eosinophils % (auto) 2.1 % (0.0-7.0); Hematocrit 37.8 % (41.0-53.0); Hemoglobin 12.9 g/dL (13.5-17.5); Lymphocytes % (auto) 23.1 % (10.0-50.0); Mean Corpuscular Hemoglobin 31.1 pg (28.0-32.0); Mean Corpuscular Hgb Conc. 34.2 g/dL (32.0-36.0); Mean Corpuscular Volume 90.8 fL (80.0-100.0); Monocytes # (auto) 0.3 10 ^3/uL (0-1.3); Monocytes % (auto) 6.8 % (0.0-12.0); Neutrophils % (auto) 67.1 % (37.0-80.0); Platelet Count (auto) 342 10^3/uL (140-450); Red Blood Cells 4.17 10^6/uL (4.5-5.90); White Blood Cell 4.5 10^3/uL (4.4-10.8)
[2024-09-25 13:12] LABS: Anion Gap 9 (5-15); Aspartate Aminotransferase 14 U/L (13-40); BUN/Creatinine Ratio 16.8 (10.0-20.0); Blood Urea Nitrogen 18 mg/dL (9-23); Calcium 9.4 mg/dL (8.7-10.4); Carbon Dioxide 25 mmol/L (20-31); Chloride 101 mmol/L (98-107)
[2024-09-25 13:13] LABS: Bilirubin, Total 0.4 mg/dL (0.2-1.0); Total Protein 6.8 g/dL (5.7-8.2)
[2024-09-25 13:18] LABS: Alanine Aminotransferase < 9 U/L (7-40); Alkaline Phosphatase 146 U/L (46-116); Glucose 112 mg/dL (74-106); Sodium 135 mmol/L (136-145)
[2024-09-25 16:59] VITALS: BP 122/93; PULSE 91; RESP 18; TEMP 98.4; O2SAT 99
[2024-09-25 20:00] VITALS: RESP 19; O2SAT 97
[2024-09-25 21:00] VITALS: BP 125/75; PULSE 82; RESP 22; TEMP 98.5; O2SAT 97
[2024-09-26] VITALS (7 sets, daily range): BP systolic 116–132; BP diastolic 60–94; PULSE 71–92; RESP 17–20; TEMP 97.7–98.2; O2SAT 96–99
--- NOTE | 2024-09-26 22:11 | DVHPN2 ---
Subjective No new events. Patients wants to stay at [facility] and refusing collaborative discussions of discharge. Eating well Walking to resetroom with walker. Reviewed: Care Plan, H&P, Labs, Medications, Previous Orders, Radiology Changes from previous H/P or p: No Changes General: No Chills, No Night Sweats Cardiovascular: No Chest Pain Respiratory: No Cough Gastrointestinal: No Nausea Genitourinary: No Dysuria Objective Vitals Vital Signs Date Time Temp Pulse Resp B/P (MAP) Pulse Ox O2 Delivery O2 Flow Rate FiO2 09/26/24 20:31 97.7 92 17 120/81 (94) 97 97.7 09/26/24 08:00 Room Air* 0 21 Intake/Output Intake and Output 09/26/24 07:00 Intake Total 3350 ml Output Total 950 ml Balance 2400 ml Intake Oral 3350 ml Output Urine Total 950 ml # Voids 4 General Appearance: Alert, Oriented X3, Cooperative, No acute distress Lungs: Clear to auscultation, Normal air movement Cardiovascular: Regular rate, Normal S1, Normal S2 Abdomen: Normal bowel sounds, Soft, No tenderness Extremities: Other (patient able to stand and use walker to walk. moving extremity/toes well. ) Neuro: Normal speech, Cranial nerves 3-12 NL Psych/Mental Status: Mental status NL, Mood NL Medications Current Medications Medications Dose Ordered Sig/Amber Route Start Time Stop Time Status Last Admin Dose Admin Sodium Chloride 10 ml Q8HR IV 09/20/24 14:00 09/26/24 06:06 10 ML Docusate Sodium 100 mg BIDPRN PRN PO 09/20/24 08:15 Acetaminophen 650 mg Q6HP PRN PO 09/20/24 08:15 Ondansetron HCl 4 mg Q4HP PRN IV 09/20/24 08:15 Enoxaparin Sodium 40 mg DAILY SC 09/20/24 10:00 Tramadol HCl 50 mg Q6H PRN PO 09/20/24 08:15 09/26/24 15:42 50 MG Melatonin 5 mg HS PO 09/22/24 01:30 09/26/24 03:13 5 MG Laboratory Results Laboratory Tests 09/25/24 11:54 Urinalysis Test 09/21/24 08:35 Urine Color Colorless (Yellow) Urine Clarity Clear (Clear) Urine pH 6.5 (5.0-9.0) Urine Specific [place] 1.006 (1.001-1.035) Urine Protein Negative (Negative) Urine Ketones Negative (Negative) Urine Blood Negative /uL (Negative) Urine Nitrite Negative (Negative) Urine Bilirubin Negative (Negative) Urine Urobilinogen Normal mg/dL (Negative) Urine Leukocyte Esterase Negative /uL (Negative) Urine RBC 2 /hpf (0 - 3) Urine WBC <1 /hpf (0 - 3) Urine Squamous Epithelial Cells Few /hpf (<5) Urine Bacteria None seen /hpf (None Seen) Urine Glucose Normal mg/dL (Normal) Assessment/Plan Assessment/Plan #Left intertrochanteric femur fracture status post intramedullary ghada and screw fixation at [facility] last week; continue physical therapy as inpatient; reviewed hip CT; reviewed orthopedic surgery note; continue pain management as tolerated; social media intern is working to find a SNF for rehab as the patient is homeless; continue monitoring - manage pain - Explore discharge options. #Normocytic anemia; most likely related to blood loss; repeat labs showed stable hemoglobin; continue monitoring #Elevated alkaline phosphatase; due to recent fracture; rest of LFTs within normal limits; continue monitoring #Overweight; counseled the patient on the importance of adopting healthy lifestyle with diet and exercise in order to lose weight; continue monitoring #Marijuana use disorder; reviewed urine drug test; counseled the patient on marijuana use cessation; continue monitoring #Homelessness; Billboard Erector onboard; continue monitoring #On DVT prophylaxis with enoxaparin; continue monitoring Plan discussed with: Patient My Orders Orders - CHLOÉ LIU MD Procedure Category Date Status Time * Billboard Erector CONS 09/26/24 Transmitted Consult Dme: Dmitriy SIMMONS 09/26/24 Transmitted 16:29 Date of Service: Sep 26, 2024 Billing Provider: CHLOÉ LIU MD Common Visit Codes: [id number] INP/OBS CARE(MOD), [id number] INP/OBS CARE(HIGH) CHLOÉ LIU MD Sep 26, 2024 22:11
[2024-09-27 05:00] VITALS: BP 112/80; PULSE 69; RESP 16; TEMP 98; O2SAT 96
[2024-09-27 08:00] VITALS: O2SAT 98
[2024-09-27 09:00] VITALS: BP 113/84; PULSE 78; RESP 20; TEMP 97.9; O2SAT 98
[2024-09-27 13:00] VITALS: BP 126/77; PULSE 82; RESP 20; TEMP 97.8; O2SAT 96
--- NOTE | 2024-09-27 14:33 | DVHDS2 ---
Discharge Summary Date of Admission Sep 20, 2024 at 08:02 Date of Discharge: Sep 27, 2024 Admitting Diagnosis Walking pain Left intertrochanteric femur fracture status post intramedullary ghada and screw fixation at other hospital . Labs/Diagnostic Data: Laboratory Results Test 09/25/24 11:54 09/21/24 08:35 09/19/24 13:34 White Blood Count 4.5 10^3/uL (4.4-10.8) Red Blood Count 4.17 10^6/uL (4.5-5.90) Hemoglobin 12.9 g/dL (13.5-17.5) Hematocrit 37.8 % (41.0-53.0) Mean Corpuscular Volume 90.8 fL (80.0-100.0) Mean Corpuscular Hemoglobin 31.1 pg (28.0-32.0) Mean Corpuscular Hemoglobin Concent 34.2 g/dL (32.0-36.0) Red Cell Distribution Width 13.0 % (11.8-14.3) Platelet Count 342 10^3/uL (140-450) Mean Platelet Volume 7.6 fL (6.9-10.8) Neutrophils (%) (Auto) 67.1 % (37.0-80.0) Lymphocytes (%) (Auto) 23.1 % (10.0-50.0) Monocytes (%) (Auto) 6.8 % (0.0-12.0) Eosinophils (%) (Auto) 2.1 % (0.0-7.0) Basophils (%) (Auto) 0.9 % (0.0-2.0) Neutrophils # (Auto) 3.0 10 ^3/uL (1.6-8.6) Lymphocytes # (Auto) 1.0 10 ^3/uL (0.4-5.4) Monocytes # (Auto) 0.3 10 ^3/uL (0-1.3) Eosinophils # (Auto) 0.1 10 ^3/uL (0-0.8) Basophils # (Auto) 0 10 ^3/uL (0-0.2) Nucleated Red Blood Cells 0.0 % Sodium Level 135 mmol/L (136-145) Potassium Level 4.0 mmol/L (3.5-5.1) Chloride Level 101 mmol/L (98-107) Carbon Dioxide Level 25 mmol/L (20-31) Anion Gap 9 (5-15) Blood Urea Nitrogen 18 mg/dL (9-23) Creatinine 1.07 mg/dL (0.700-1.30) Glomerular Filtration Rate Calc 80 mL/min (>90) BUN/Creatinine Ratio 16.8 (10.0-20.0) Serum Glucose 112 mg/dL (74-106) Calcium Level 9.4 mg/dL (8.7-10.4) Total Bilirubin 0.4 mg/dL (0.2-1.0) Aspartate Amino Transferase (AST) 14 U/L (13-40) Alanine Aminotransferase (ALT) < 9 U/L (7-40) Alkaline Phosphatase 146 U/L (46-116) Total Protein 6.8 g/dL (5.7-8.2) Albumin 4.0 g/dL (3.2-4.8) Urine Color Colorless (Yellow) Urine Clarity Clear (Clear) Urine pH 6.5 (5.0-9.0) Urine Specific [place] 1.006 (1.001-1.035) Urine Protein Negative (Negative) Urine Ketones Negative (Negative) Urine Blood Negative /uL (Negative) Urine Nitrite Negative (Negative) Urine Bilirubin Negative (Negative) Urine Urobilinogen Normal mg/dL (Negative) Urine Leukocyte Esterase Negative /uL (Negative) Urine RBC 2 /hpf (0 - 3) Urine WBC <1 /hpf (0 - 3) Urine Squamous Epithelial Cells Few /hpf (<5) Urine Bacteria None seen /hpf (None Seen) Urine Glucose Normal mg/dL (Normal) Urine Opiates Screen Neg (NEGATIVE) Urine Fentanyl Screen Neg (NEGATIVE) Urine Barbiturates Screen Neg (NEGATIVE) Urine Phencyclidine Screen Neg (NEGATIVE) Urine Amphetamines Screen Neg (NEGATIVE) Urine Benzodiazepines Screen Neg (NEGATIVE) Urine Cocaine Screen Neg (NEGATIVE) Urine Cannabinoids Screen Neg (NEGATIVE) Magnesium Level 2.1 mg/dL (1.6-2.6) Other Laboratory Tests 09/25/24 11:54 Brief Hx & Hospital Course: History on admssion. 59Y M with PMHx anxiety and lt hip surgery presents to ED via EMS for chief complaint lt hip pain s/p surgery 8 days ago. Pt had lt hip surgery performed 8 days ago at [facility] and was sent to a post-acute center. Pt states he is unable to disclose information on reason for the surgery as his ice sculptor recommended against it. Pt was picked up at the post-acute center by EMS today as pt heard a "rip and pop" on his left hip last night. Pt denies seeing blood. Pt denies chest pain, SOB, fever, and all other symptoms. Per pt, current post- acute center does not have proper amenities for his care and do not have the ability to give him pain medication. Pt states he is unable to stand up alone and does not receive proper help in the current post-acute center. IMPRESSION: Left intertrochanteric femur fracture status post intramedullary ghada and screw fixation. The hardware appears intact and there is good alignment of the fracture fragments. Preoperative imaging is not available for comparison. #Left intertrochanteric femur fracture status post intramedullary ghada and screw fixation at [facility] last week. Oain ws managed in house. Case management worked on placement with [employer] and insurance. Once patient could walk with walker and pain was managed hew as discharged. Condition at Discharge: Good Final Diagnosis/Problems List Left intertrochanteric femur fracture status post intramedullary ghada and screw fixation Discharge Disposition: Home SNF Discharge Will this Physician continue t: No Discharge Instruct/Medications Diet: Regular Activity: Light activity Discharge Statement: "Patient was advised to return to the ER or call 911 if any headaches, dizziness, shortness of breath, chest pain, abdominal pain, bleeding, fevers, or worsening of medical condition. Patient was counseled about treatment plan, medications, possible side effects, patientverbalized understanding. All questions were answered to the best of my ability. This discharge took greater then 30 minutes in planning, reviewing documentation, counseling the patient, and discussing with other team members." DME: Diagnosis: Left intertrochanteric femur fracture status post intramedullary ghada and screw fixation ASSESSMENT ASSESSMENT Assessment #Left intertrochanteric femur fracture status post intramedullary ghada and screw fixation at [facility] last week; #Normocytic anemia; #Elevated alkaline phosphatase; #Overweight #Marijuana use disorder; Date of Service: Sep 27, 2024 Billing Provider: CHLOÉ LIU MD Common Visit Codes: [id number]/OBS DISCH DAY >30min CHLOÉ LIU MD Sep 27, 2024 14:33
[2024-09-27] MEDS ORDERED: DOCU-265 PO (14:51)
[2024-09-27] MEDS ORDERED: ACET-1882 PO (14:51)
[2024-09-27 17:00] VITALS: BP 122/69; PULSE 56; RESP 20; TEMP 98; O2SAT 96
== END 2024-09-27 18:00 | disposition home or self-care (01) | DRG 861 ==
LOC: ER 11:33 → EDBD 11:33 → OVERFLOW 09-20 08:02 → WEST WING 09-20 22:27
PROVIDERS: ADMIT Family Medicine; ATTEND Family Medicine
DX: G89.18 Other acute postprocedural pain (principal); D62 Acute posthemorrhagic anemia; E66.3 Overweight; Z96.642 Presence of left artificial hip joint; F12.10 Cannabis abuse, uncomplicated; F41.9 Anxiety disorder, unspecified; R74.8 Abnormal levels of other serum enzymes; Y83.8 Other surgical procedures as the cause of abnormal reaction of the patient, or of later complication, without mention of misadventure at the time of the procedure; Y92.89 Other specified places as the place of occurrence of the external cause; Z59.00 Homelessness unspecified; Z88.3 Allergy status to other anti-infective agents; Z68.26 Body mass index [BMI] 26.0-26.9, adult
CPT/HCPCS: 36415; 73700; 80048; 80053; 80307; 81001; 83735; 85025; 97110; 97116; 97163; 97530; G0378